=== PATIENT | female | born 1955 | race Caucasian/White ===

== ENCOUNTER 2017-02-28 17:19 | Emergency (ER) | payer BC ==
[~2017-02-28] VITALS: Ht 162.6 cm; Wt 82.6 kg
[2017-02-28 17:25] VITALS: BP 136/67
--- NOTE | 2017-02-28 17:42 | Emergency Room Report ---
History of Present Illness General Chief Complaint: Dizziness Source: Patient, EMS Present Illness HPI [id number] BIBEMS after feeling lightheaded at restaurant (NOT [place]). Was sitting down. Then felt diaphoretic and almost passed out but denies LOC. Denies precipitating or current chest pain, SOB, palpitations, abd pain, fever/ chills C./o polyuria "all last night" but has NOT been drinking lots of water Went to PMD today - UA checked but doesnt know results. Had cardiac echo as well - also doesnt know results. History of HTN, compliant with losartan Denies other meds, medical problems Was given zofran by EMS AMbualting with steady gait in ED Patient History Past Medical History: HTN Past Surgical History: none Pertinent Family History: none Social History: Denies: smoking, alcohol use, drug use Now: No Immunizations: UTD Reviewed Nursing Documentation: PMH: Agreed, PSxH: Agreed Nursing Documentation-PMH Past Medical History: No History, Except For Hx Cardiac Problems: No Hx Hypertension: Yes Hx Pacemaker: No Hx Asthma: No Hx COPD: No Hx Diabetes: No Hx Cancer: No Hx Gastrointestinal Problems: No Hx Dialysis: No History Of Psychiatric Problem: No Hx Neurological Problems: No Hx Cerebrovascular Accident: No Hx Seizures: No Review of Systems All Other Systems: negative except mentioned in HPI Physical Exam Vital Signs Date Time Temp Pulse Resp B/P (MAP) Pulse Ox O2 Delivery O2 Flow Rate FiO2 02/28/17 17:18 97.7 82 22 159/76 99 Room Air Sp02 EP Interpretation: reviewed, normal General Appearance: normal inspection, well appearing, no apparent distress, alert, GCS 15, non-toxic, other - Well appearing lady in no acute distres Head: normocephalic, atraumatic Eyes: bilateral eye PERRL, bilateral eye EOMI ENT: normal ENT inspection, hearing grossly normal, normal voice Neck: normal inspection, full range of motion, supple, no bony tend Respiratory: normal inspection, lungs clear, normal breath sounds, no respiratory distress, no retraction, no wheezing Cardiovascular #1: regular rate, rhythm, no edema Gastrointestinal: normal inspection, normal bowel sounds, non tender, soft, no guarding, no hernia Genitourinary: no CVA tenderness Musculoskeletal: normal inspection, back normal, normal range of motion, [place] s Sign negative Neurologic: normal inspection, alert, oriented x3, responsive, television host III-XII nml as tested, motor strength/tone normal, speech normal Psychiatric: normal inspection, judgement/insight normal, mood/affect normal Skin: normal inspection, normal color, no rash Lymphatic: normal inspection Medical Decision Making Diagnostic Impression: Primary Impression: Near syncope Additional Impressions: Lightheaded Polyuria UTI (urinary tract infection) Qualified Codes: N30.00 - Acute cystitis without hematuria ER Course Near-syncope d/t deyhdration from polyuria UA with +LE, bacteria ECG is NSR. No ischemia. Rx Macrobid Tolerating PO, ambulating with steady gait. Stable vitals. Had Echo done already by PMD Will advise followup on result DC home EKG Diagnostic Results Rate: normal Rhythm: NSR ST Segments: no acute changes ASA given to the pt in ED: No Rhythm Strip Diag. Results EP Interpretation: yes Rate: 71 Rhythm: NSR, no PVC's, no ectopy Last Vital Signs Date Time Temp Pulse Resp B/P (MAP) Pulse Ox O2 Delivery O2 Flow Rate FiO2 02/28/17 17:18 97.7 82 22 159/76 99 Room Air Status: improved Disposition: HOME, SELF-CARE ANGEL ALONSO M.D. Feb 28, 2017 17:42
[2017-02-28 17:50] LABS: APPEARANCE,URINE CLEAR; KETONES,URINE NEGATIVE (NEGATIVE); LEUKOCYTE ESTERASE ,URINE 3+ (NEGATIVE); NITRITE,URINE NEGATIVE (NEGATIVE); PH,URINE 8 (4.5-8.0); PROTEIN,URINE NEGATIVE (NEGATIVE); UROBILINOGEN,URINE NORMAL MG/DL (0.0-1.0)
[2017-02-28 18:06] LABS: BACTERIA,URINE FEW /HPF; RBC,URINE 0-2 /HPF (0 - 2); SQUAMOUS EPITHELIAL CELL,UR FEW /LPF (NONE/OCC)
[2017-02-28] MEDS ORDERED: NITROFURANTOIN100 M2 ORAL (18:14)
[2017-02-28 18:25] VITALS: BP 132/65
== END 2017-02-28 18:25 | disposition home or self-care (01) ==
LOC: EDBD 17:19 → EMR 17:35
DX: R55 Syncope and collapse (principal); R35.8 Other polyuria; N30.00 Acute cystitis without hematuria; I10 Essential (primary) hypertension
CPT/HCPCS: 81003; 82962; 93005; 99284